=== PATIENT | female | born 1985 | race Two or more races ===

== ENCOUNTER 2016-02-22 19:59 | Emergency (ER) | payer MEDICAID, OTHER ==
[~2016-02-22] VITALS: Ht 144.8 cm; Wt 72.6 kg
[2016-02-22 20:24] VITALS: BP 100/45
== END 2016-02-23 02:05 | disposition left against medical advice (07) ==
LOC: ER 20:09
DX: R10.9 Unspecified abdominal pain (principal); Z53.21 Procedure and treatment not carried out due to patient leaving prior to being seen by health care provider